=== PATIENT | female | born 1980 | race Caucasian/White ===

== ENCOUNTER 2021-05-01 18:23 | Emergency (ER) | payer MEDICAID ==
[~2021-05-01] VITALS: Ht 170.2 cm; Wt 77.1 kg
[2021-05-01 18:25] VITALS: BP 128/72
--- NOTE | 2021-05-01 18:43 | NUR ---
FIRST CONTACT: Right flank pain, vaginal discharge, vaginal rash, urinary incontinence x2 Pt recent tx for yeast with monistat says wasn't able to finish the course due to breaking out in rash. PT TO BED WITH STEADY GAIT. POSTIONED TO COMFORT. ATTACHED TO MONITORS. VSS. JUAREZ.
--- NOTE | 2021-05-01 18:50 | NUR ---
Pt resting comfortably, awaiting initial provider evaluation.
[2021-05-01 18:59] LABS: MICROSCOPIC AUTO
[2021-05-01 19:46] LABS: BASOPHILS % (AUTO) 0 % (0-1); EOSINOPHILS % (AUTO) 2 % (1-7); LYMPHOCYTES % (AUTO) 18 % (22-44); MEAN CORPUSCULAR HEMOGLOBIN 28.6 pg (27.0-34.8); MEAN CORPUSCULAR HGB CONC 33.4 g/dL (32.4-35.8); MEAN PLATELET VOLUME 9.1 fL (7.4-10.4); MONOCYTES % (AUTO) 9 % (2-9); NEUTROPHILS % (AUTO) 72 % (42-75); PLATELET COUNT 270 x10^3/uL (130-400); RED BLOOD COUNT 4.04 x10^6/uL (3.82-5.3); RED CELL DISTRIBUTION WIDTH 14.9 % (9.6-15.2)
[2021-05-01] MEDS ORDERED: AZITHROMYCIN 500 MG TABLET ONE (19:48)
[2021-05-01] MEDS ORDERED: LIDOCAINE-MPF 1%, 5ML ONE (19:49)
[2021-05-01] MEDS ORDERED: CEFTRIAXONE 250 MG ONE (19:49)
--- NOTE | 2021-05-01 19:57 | NUR ---
Provider Leisa, performing pelvic. Pt tolerated PO and IM ABX well. Denies further needs
[2021-05-01 19:59] LABS: ALANINE AMINOTRANSFERASE 24 U/L (12-78); ANION GAP 2 mmol/L (5-15); CALCIUM 7.9 mg/dL (8.5-10.1); CHLORIDE 111 mmol/L (98-107); CREATININE 0.71 mg/dL (0.55-1.02)
[2021-05-01] MEDS ORDERED: CEFTRIAXONE 250 MG IM ONE (20:00)
[2021-05-01] MEDS ORDERED: CEFTRIAXONE 1,000 MG IM ONE (20:00)
[2021-05-01] MEDS ORDERED: AZITHROMYCIN 500 MG TABLET PO ONE (20:00)
[2021-05-01 20:03] LABS: ALKALINE PHOSPHATASE 69 U/L (45-117); BILIRUBIN,TOTAL 0.2 mg/dL (0.2-1.0); TOTAL PROTEIN 6.3 g/dL (6.4-8.2)
[2021-05-01 20:15] LABS: WET PREP WBCS MANY (FEW)
[2021-05-01 20:17] LABS: CLUE CELLS NONE SEEN (NONE SEEN)
[2021-05-01] MEDS ORDERED: metroNIDAZOLE 500 MG TABLET ONE (20:43)
[2021-05-01] MEDS ORDERED: ONDANSETRON ODT 4 MG ONE (20:43)
--- NOTE | 2021-05-01 20:49 | NUR ---
Pt resting comfortably at this time, updated on results, meds given. Denies further needs
[2021-05-01] MEDS ORDERED: ONDANSETRON ODT 4 MG PO ONE (21:00)
[2021-05-01] MEDS ORDERED: metroNIDAZOLE 500 MG TABLET PO ONE (21:00)
[2021-05-01] MEDS ORDERED: DIPHENHYDRAMINE 25 MG CAPSULE ONE ×2 (21:01→21:20)
[2021-05-01] MEDS ORDERED: DEXAMETHASONE 4 MG TABLET ONE (21:20)
[2021-05-01] MEDS ORDERED: methylPREDNISolone SOD SUCC 125 MG/2 ML ONE (21:23)
[2021-05-01] MEDS ORDERED: DIPHENHYDRAMINE 50 MG/ML, 1ML ONE (21:23)
[2021-05-01] MEDS ORDERED: DEXAMETHASONE 4 MG TABLET PO ONE (21:30)
[2021-05-01] MEDS ORDERED: DIPHENHYDRAMINE 50 MG/ML, 1ML IVPush ONE (21:30)
[2021-05-01] MEDS ORDERED: SODIUM CHLORIDE FLUSH 10ML SYR IVF ONE (21:30)
[2021-05-01] MEDS ORDERED: methylPREDNISolone SOD SUCC 125 MG/2 ML IV ONE (21:30)
[2021-05-01] MEDS ORDERED: DIPHENHYDRAMINE 25 MG CAPSULE PO ONE ×2 (21:30)
--- NOTE | 2021-05-01 21:33 | NUR ---
Pt began having diffuse hives/utricaria following ABX administration. IV established, pt given 125 IV Solumedrol and IV Benadryl. Tolerated well. Pt very uncomfortable, Leisa mid level to bedside to assess. No airway compromise, no angioedema assessed. Pt speaking in full sentences. Will cont to monitor.
--- NOTE | 2021-05-01 23:04 | NUR ---
Patient/Caregiver given discharge instructions and they have confirmed that they understand the instructions. Patient ambulatory with steady gait. NAD, all questions answered appropriately, denies additional needs at this time. No personal belongings left in room after discharge.
== END 2021-05-01 23:05 | disposition home or self-care (01) ==
LOC: ED 21:54
DX: A59.01 Trichomonal vulvovaginitis (principal); A56.8 Sexually transmitted chlamydial infection of other sites; A54.9 Gonococcal infection, unspecified; L50.0 Allergic urticaria; T37.8X5A Adverse effect of other specified systemic anti-infectives and antiparasitics, initial encounter; Y92.89 Other specified places as the place of occurrence of the external cause
CPT/HCPCS: 36415; 80053; 81001; 84703; 85025; 87086; 87210; 87491; 87591; 87808; 96372; 96374; 96375; 99284; J0696; J1200; J2930; Q0162; Q0163